=== PATIENT | male | born 2000 | race Caucasian/White ===

== ENCOUNTER 2023-02-17 09:31 | Emergency (ER) | payer BC, SELFPAY ==
[2023-02-17 09:35] VITALS: BP 136/78; PULSE 87; RESP 16; TEMP 36.9; O2SAT 99; BMI 29.8
[2023-02-17 09:44] VITALS: RESP 16
--- NOTE | 2023-02-17 10:01 | ED.FEVER1 ---
HPI - Fever General Chief Complaint: Fever Stated Complaint: FEVER Time Seen by Provider: 02/17/23 09:51 Source: patient Mode of arrival: walk-in Limitations: no limitations History of Present Illness HPI Narrative: this is a healthy patient here complaining of onset of fever yesterday. He was up as high as one oh one but he did take some Tylenol today, here in the Emergency Room at [facility]. He has a paucity of other symptoms. He does not have a terrible sore throat no earache slight hoarseness to his voice no purulent nasal discharge no purulent sputum no shortness of breath he did have nausea and did vomit last night a couple times but he does not have any nausea or stomachache at all at this time. Has no skin lesions or rashes. He is very healthy. He is not on any antibiotics. He has not received Covid vaccine and he did not test for Covid. Related Data Allergies Allergy/AdvReac Type Severity Reaction Status Date / Time No Known Drug Allergies Allergy Verified 02/17/23 09:34 PFSH [facility] Social History Smoking status: Never smoker Exam Narrative Exam Narrative: awake alert good historian pleasant no distress at all vital signs are noted. HEENT tympanic membranes are normal bilaterally. Nares are not congested pharynx is not erythematous. Neck is soft and supple with no obvious cervical adenitis. Respiratory his lungs are clear to auscultation no wheezes rales or rhonchi heart sounds are normal with no murmur. Skin integument without any petechiae purpura rash or exanthems. Extremities showed no joint swelling or arthralgia. Psych and cognition are normal with no evidence of meningeal irritation or nuchal rigidity. Constitutional Vital Signs - 24 hr 02/17/23 09:35 02/17/23 09:44 Temperature 98.5 F Pulse Rate [Monitor] 87 Respiratory Rate 16 16 Blood Pressure [Right Arm] 136/78 H Pulse Oximetry 99 Oxygen Delivery Method Room Air Course Vital Signs Vital signs: Vital Signs Temperature 98.5 F 02/17/23 09:35 Pulse Rate 87 02/17/23 09:35 Respiratory Rate 16 02/17/23 09:35 Blood Pressure 136/78 H 02/17/23 09:35 Pulse Oximetry 99 02/17/23 09:35 Oxygen Delivery Method Room Air 02/17/23 09:35 Temperature 98.5 F 02/17/23 09:35 Pulse Rate 87 02/17/23 09:35 Respiratory Rate 16 02/17/23 09:44 Blood Pressure 136/78 H 02/17/23 09:35 Pulse Oximetry 99 02/17/23 09:35 Oxygen Delivery Method Room Air 02/17/23 09:35 MDM - Fever MDM Narrative Medical decision making narrative: patient has a 24-hour history of low-grade fever and no focus of infection with classic viral symptomatology. I have advised him to self-test for Covid at home. This will probably be a self-limiting condition as he is healthy and immune competent. Fever reduction was discussed he's take plenty of fluids and get plenty of rest and he was given several days off work Discharge Plan Discharge Chief Complaint: Fever Clinical Impression: Fever Time of Disposition Decision: 10:03 Instructions: Fever in Adults (ED) Additional Instructions: combine Tylenol with ibuprofen/plenty of rest, fluids. Recheck in seventy-two hours if not improved Stand Alone Forms: Portal Instructions Referrals: Johny Pichardo MD [Primary Care Provider] - 1 week
== END 2023-02-17 10:10 ==
LOC: ER 10:01
PROVIDERS: Emergency Provider Emergency Medicine Emergency Medical Services; PCP Family Medicine
DX: R50.9 Fever, unspecified (principal)
CPT/HCPCS: 99281

== ENCOUNTER 2025-04-10 19:27 | Emergency (ER) | payer BC, SELFPAY ==
[2025-04-10 19:31] VITALS: BP 156/85; PULSE 77; TEMP 37.1; O2SAT 98; BMI 31.2
--- OUTSIDE RECORDS SUMMARY | 2025-04-10 19:38 | XMS_ITS | Clinical Summary ---
Author Organization [facility] Address [address] [place] [address] Care Team Providers Care Legal Aid Name Role Phone Unavailable Primary Care Provider Unavailabl e Social History Tobacco Use Types Packs/Day Years Used Date Smoking Tobacco: Never Assessed [place] Safety & Environment Answer Date Rec orded Fear of Current or Ex-Partner Not on file Emotionally Abused Not on file 10/08/2023 Physically Abused Not on file 10/08/2023 Sexually Abused Not on file 10/08/2023 Physically or Sexually Abused Not on file Sex and Gender Information Value Date Recorded Sex Assigned at Not on file Legal Sex Male 10:06 AM EDT Gender Identity Not on file Sexual Orientation Not on file Plan of Treatment Health Maintenance Due Date Last Done Comments Depression Screening 2013 Varicella Vaccines (1 of 2 - 13+ 2-dose series) 2014 HPV Vaccines (1 - Male 3-dos e series) 2016 Meningococcal B Vaccine (1 o f 2 - Standard) 2017 Adult Tetanus 2023 Influenza Vaccine (#1) 2025 Zoster Vaccines (1 of 2) 2051 HIB Vaccines Aged Out No longer eligi ble based on patient's age to complete this topic IPV Vaccines Aged Out No longer eligi ble based on patient's age to complete this topic Meningococcal Vaccine Aged Out No dov delbert eligible based on patient's age to complete this topic Pneumococcal Vaccine: Pediat rics (0 to 5 Years) and At-Risk Patients (6 to 64 Years) Aged Out No longer eligible b ased on patient's age to complete this topic Rotavirus Vaccines Aged Out No longer eligible based on patient's age to complete this topic
--- NOTE | 2025-04-10 19:40 | PC.NURSE ---
pt accidentally swallowed a bone while eating ribs earlier today and now has some chest/throat pain from it. can drink water
--- NOTE | 2025-04-10 19:42 | ED.GENADUL1 ---
HPI HPI - General Adult General Chief complaint: Recheck/Abnormal Lab/Rx Stated complaint: EATING RIBS, GOT SOMETHING STUCK DOWN IN HIS THROA Time Seen by Provider: 04/10/25 19:31 Source: patient and family Mode of arrival: walk-in Limitations: no limitations Related Data Previous Rx's ?Medication ?Instructions ?Recorded pantoprazole 40 mg granules 40 mg PO DAILY 4 weeks #30 ea 04/10/25 delayed-release for susp in packet (Protonix) Allergies Allergy/AdvReac Type Severity Reaction Status Date / Time No Known Drug Allergies Allergy Verified 04/10/25 19:33 Opioid HPI Opioid Management Most Recent Opioid Data: Last ED Pain Assessment Today, 19:42 PFSH PFSH Social History Smoking status: Never smoker Little interest or pleasure in doing things: not at all Feeling down, depressed, or hopeless: not at all Exam Constitutional Vital Signs, click to edit/add: Last Vital Signs Temp 98.7 F 04/10/25 19:31 Pulse 77 04/10/25 19:31 Resp 16 04/10/25 19:31 BP 156/85 H 04/10/25 19:31 Pulse Ox 98 04/10/25 19:31 O2 Del Method Room Air 04/10/25 19:31 Course Course Hospital Course: Patient arrived to the hospital stating that he was able to pass fluids and some crackers. Patient has not complained of any previous strictures to the throat or difficulty swallowing. Reevaluation(s) Reevaluation #1: Patient was reevaluated at 8 PM. Patient has been able to tolerate the soda and it did not come back up. Patient did not necessarily feel complete relief from the irritation in his esophagus but he did not have any trouble getting it down. Time: 20:00 Reevaluation #2: X-ray came back and was interpreted by me. Reveals no evidence of paraesophageal air or air in the mediastinum. No evidence of any abnormality in the cardiac or lung arias. Patient and his were told about the findings. Patient will take Protonix for 1 month. Will follow-up with his primary medical physician for further evaluation and treatment consideration for an EGD. Time: 20:46 Vital Signs Vital signs: Vital Signs Temperature 98.7 F 04/10/25 19:31 Pulse Rate 77 04/10/25 19:31 Respiratory Rate 16 04/10/25 19:31 Blood Pressure 156/85 H 04/10/25 19:31 Pulse Oximetry 98 04/10/25 19:31 Oxygen Delivery Method Room Air 04/10/25 19:31 Temperature 98.7 F 04/10/25 19:31 Pulse Rate 77 04/10/25 19:31 Respiratory Rate 16 04/10/25 19:31 Blood Pressure 156/85 H 04/10/25 19:31 Pulse Oximetry 98 04/10/25 19:31 Oxygen Delivery Method Room Air 04/10/25 19:31 Medical Decision Making MDM Narrative Medical decision making narrative: 24-year-old male presents with an esophageal foreign body that possibly passed but he was still having discomfort. No history of Schatzki's ring or esophageal strictures. Differential Diagnosis Differential Diagnosis: Foreign body, esophagitis, Zenker's, Boerhaave's, partial tear and esophage Medical Records Medical records reviewed: Yes I reviewed the patient's medical records Imaging Data Chest x-ray: Attestation: I personally reviewed and interpreted this imaging study as follows: My impression: No evidence of any acute cardiopulmonary abnormality. Discharge Plan Discharge Chief Complaint: Recheck/Abnormal Lab/Rx Clinical Impression: Esophagitis Patient Disposition: Home, Self-Care Time of Disposition Decision: 20:49 Condition: Good Mode of Transportation: Private Vehicle Prescriptions / Home Meds: New pantoprazole [Protonix] [address] for susp in packet 40 mg PO DAILY 28 Days Qty: 30 0RF Print Language: Slovak Instructions: Food Impaction (ED) Additional Instructions: Thank you for trusting me with your care today. Please follow-up with your primary care doctor. You may need to see a outpatient services director for an EGD referral or a scope. Please make sure you are chewing your food and small pieces because your throat is likely very irritated from the episode this afternoon. Referrals: Johny Pichardo MD [Primary Care Provider, Family Practice] - 1 week
--- NOTE | 2025-04-10 19:44 | XR_ITS ---
[place] [id number] Patient Name: IVETH LINDSAY MRN: [id number] date: 2000 Sex: M Assigned Patient Location: ED.MAIN Current Patient Location: ED.MAIN Accession/Order Number: [id number] Exam Date: 04/10/2025 20:35 Report Date: 04/10/2025 20:50 At the request of: FLAVIA MOSER DO Procedure: XR chest 2V XR chest 2V 04/10/2025 8:39 PM SIGNS AND SYMPTOMS: Chest pain after eating, possibly swallowed bone PROTOCOL: Frontal and lateral graphs of the chest COMPARISON: 06/02/2016 FINDINGS: The trachea is midline. The heart and mediastinal structures are within normal limits. The lung parenchyma is clear. The bony thorax is intact. No abnormal radiopaque foreign body. XR/XR chest 2V IMPRESSION: No acute cardiopulmonary pathology. No abnormal radiopaque foreign body. Impression dictated by: Delroy Keene M.D. 04/10/2025 8:50 PM Dictation Location: [place] [id number] Electronically authenticated by: [id number] Date: 04/10/2025 20:50
== END 2025-04-10 20:54 | disposition home or self-care (01) ==
PROVIDERS: Emergency Provider Emergency Medicine; PCP Family Medicine
DX: K20.90 Esophagitis, unspecified without bleeding (principal)
CPT/HCPCS: 71046; 99283